=== PATIENT | female | born 1970 | race African-American/Black ===

== ENCOUNTER 2017-04-06 10:25 | Observation (INO) | payer OTHER ==
[2017-04-06 10:30] VITALS: BMI 28.8
[2017-04-06] MEDS ORDERED: SODIUM CHLORIDE 1,000 ML IV STA (10:58)
[2017-04-06 11:09] LABS: BASOPHIL 0.5 % (0-2.0); EOSINOPHIL 0.8 % (0-4.5); MCHC 27.1 g/dl (32.0-36.0); MEAN PLT VOLUME 8.3 fl (7.5-11.1); NEUTROPHILS 85.2 % (42.8-82.8); PLATELET COUNT 463 K/MM3 (134-434); RDW 19.8 % (11.6-15.6); WHITE BLOOD COUNT 11.6 K/mm3 (4.0-10.0)
[2017-04-06 11:14] LABS: MCH 15.1 pg (25.7-33.7)
[2017-04-06 11:20] LABS: URINE APPEARANCE SLCLOUDY; URINE BILIRUBIN NEGATIVE (NEGATIVE); URINE BLOOD NEGATIVE (NEGATIVE); URINE COLOR YELLOW; URINE GLUCOSE (UA) NEGATIVE (NEGATIVE); URINE KETONE NEGATIVE (NEGATIVE); URINE NITRITE NEGATIVE (NEGATIVE); URINE PROTEIN NEGATIVE (NEGATIVE); URINE UROBILINOGEN NEGATIVE mg/dL (0.2-1.0)
[2017-04-06 11:33] LABS: ALBUMIN 3.7 g/dl (3.4-5.0); ANION GAP 9 (8-16); BILIRUBIN,TOTAL 0.2 mg/dL (0.2-1.0); CO2 23 mmol/L (21-32); GLUCOSE,RANDOM 94 mg/dL (74-106); SGOT/AST 15 U/L (15-37); SGPT/ALT 16 U/L (12-78); TOT PROT 7.9 g/dl (6.4-8.2)
[2017-04-06 11:36] LABS: ALK PHOS 62 U/L (45-117); CPK 87 IU/L (26-192); TROPONIN I < 0.02 ng/ml (0.00-0.05)
[2017-04-06 11:46] LABS: ANISOCYTOSIS 2+; HYPOCHROMIA 4+; MACROCYTOSIS 1+; MICROCYTOSIS 2+; POLYCHROMASIA 1+; TARGET CELLS 1+
--- NOTE | 2017-04-06 11:47 | PDOC ---
History of Present Illness - General Chief Complaint: Syncope/Near Syncope Stated Complaint: LIGHTHEADED, SYNCOPE Time Seen by Provider: 04/06/17 10:46 History Source: Patient Exam Limitations: No Limitations - History of Present Illness Initial Comments: 04/06/17 11:23 46-year-old female with no past medical history presents to the medicine status post syncopal episode. Patient states the past few months has been having intermittent bouts of dizziness along with mild shortness of breath and palpitations worsened with movement or position changes. Patient denies headache , visual changes, fever, neck pain, difficulty swallowing, thyroid disorders, pulmonary disorders, abdominal pain change in weight, change in diet, lower extremity edema, or cold intolerance. Patient states has not seen his PCP in approximately [address] Stanford but has been followed by her LEARNING TECHNOLOGIST with routine mammo/Paps. 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 Patient denies drug or alcohol use. Patient denies change in weight. Presenting Symptoms: Dizziness, Short of Breath, Syncope Timing/Duration: reports: resolved prior to arrival Severity/Quality: reports: mild, moderate Prior Chest Pain/Cardiac Workup: reports: No prior chest pain Aspirin Received prior to arrival (Core Measure): Yes: no aspirin today Associated Symptoms: Yes: Dizziness, Shortness of Breath, Syncope Past History - Travel Traveled outside of the country in the last 30 days: No Close contact w/someone who was outside of country & ill: No - Past Medical History Allergies/Adverse Reactions: Allergies Allergy/AdvReac Type Severity Reaction Status Date / Time No Known Allergies Allergy Verified 04/06/17 10:30 Home Medications: Ambulatory Orders NK [No Known Home Medication] 04/06/17 Other medical history: PATIENT DENIES MEDICAL HX - Reproductive History LMP Normal: Yes Is Patient Now?: No - Suicide/Smoking/Psychosocial Hx Smoking History: Never smoked Hx Alcohol Use: Yes (OCCASIONALLY) Drug/Substance Use Hx: No Patient Lives Alone: No Lives with/in: spouse/SO Review of Systems - Review of Systems Able to Perform ROS?: Yes Constitutional: Yes: Weakness HEENTM: No: Symptoms Reported Respiratory: Yes: SOB with Exertion Cardiac (ROS): Yes: Lightheadedness, Palpitations, Syncope. No: Chest Tightness ABD/GI: No: Symptoms Reported : No: Symptoms Reported Musculoskeletal: No: Symptoms Reported Integumentary: No: Symptoms Reported Neurological: Yes: Weakness, Dizziness Hematologic/Lymphatic: No: Symptoms Reported, Anemia, Blood Clots, Easy Bruising *Physical Exam - Vital Signs Last Vital Signs Temp Pulse Resp BP Pulse Ox 98.2 F 96 H 16 111/72 100 04/06/17 10:27 04/06/17 10:59 04/06/17 10:27 04/06/17 10:59 04/06/17 10:49 - Physical Exam General Appearance: Yes: Nourished, Appropriately Dressed. No: Apparent Distress HEENT: positive: EOMI, SEAN, TMs Normal, Pharynx Normal, Pale Conjunctivae Neck: positive: Normal Thyroid, Supple Respiratory/Chest: positive: Lungs Clear, Normal Breath Sounds. negative: Respiratory Distress, Accessory Muscle Use Cardiovascular: positive: Regular Rhythm, Regular Rate. negative: Murmur Gastrointestinal/Abdominal: positive: Soft. negative: Tenderness Integumentary: positive: Warm, Moist Neurologic: positive: Normal Mood/Affect, Motor Strength 5/5 (ambulatory) Heart Score/ECG Review - ECG Intrepretation Rhythm: Regular Rhythm (76 normal sinus rhythm) ED Treatment Course - LABORATORY CBC & Chemistry Diagram: 04/06/17 11:00 04/06/17 11:00 - ADDITIONAL ORDERS Additional order review: Laboratory Results 04/06/17 04/06/17 04/06/17 11:26 11:00 11:00 D-Dimer Sodium 136 Potassium 4.0 Chloride 104 Carbon Dioxide 23 Anion Gap 9 BUN 14 Creatinine 1.0 Creat Clearance w eGFR 59.96 Random Glucose 94 Calcium 9.0 Total Bilirubin 0.2 AST 15 ALT 16 Alkaline Phosphatase 62 Creatine Kinase 87 Troponin I < 0.02 Total Protein 7.9 Albumin 3.7 Urine Color Yellow Urine Appearance Slcloudy Urine pH 5.0 Urine Protein Negative Urine Glucose (UA) Negative Urine Ketones Negative Urine Blood Negative Urine Nitrite Negative Urine Bilirubin Negative Urine Urobilinogen Negative Urine HCG, Qual Negative Crossmatch See Detail 04/06/17 11:00 D-Dimer < 200 Sodium Potassium Chloride Carbon Dioxide Anion Gap BUN Creatinine Creat Clearance w eGFR Random Glucose Calcium Total Bilirubin AST ALT Alkaline Phosphatase Creatine Kinase Troponin I Total Protein Albumin Urine Color Urine Appearance Urine pH Urine Protein Urine Glucose (UA) Urine Ketones Urine Blood Urine Nitrite Urine Bilirubin Urine Urobilinogen Urine HCG, Qual Crossmatch 04/06/17 11:00 RBC 3.93 MCV 56.0 L MCHC 27.1 L RDW 19.8 H MPV 8.3 Neutrophils % 85.2 H Lymphocytes % 8.8 Monocytes % 4.7 Eosinophils % 0.8 Basophils % 0.5 - RADIOLOGY Radiology Studies Ordered: Category Date Time Status CHEST X-RAY PORTABLE* [RAD] Stat Radiology 04/06/17 10:58 Ordered - Medications Given in the ED: ED Medications Discontinued Medications Generic Name Dose Route Start Last Admin Trade Name Freq PRN Reason Stop Dose Admin Sodium Chloride 1,000 mls @ 1,000 mls/hr 04/06/17 10:58 04/06/17 11:10 Normal Saline - IV 04/06/17 11:57 1,000 mls/hr ASDIR STA Administration Medical Decision Making - Medical Decision Making 04/06/17 11:21 Patient with intermittent dizziness, shortness of breath and weakness over the past 2 months now associated with a syncopal episode. Patient states started to feel dizzy and weak while shopping and while bending over symptoms increased and then awoke up on the floor with bystanders surrounding her. Patient ordered for cardiac workup, head CT labs, IV fluids and orthostatic vitals. Patient was found to be mildly orthostatic. Urinalysis urine ordered. 04/06/17 11:53 Laboratory Tests 04/06/17 11:00 WBC 11.6 H Hgb 5.9 L* Hct 22.0 L MCV 56.0 L MCH 15.1 L MCHC 27.1 L Plt Count 463 H Neutrophils % 85.2 H In questioning the patient patient states has had more shortness of breath with minimal exertion heavy but regular menses along with frequent ice chewing. Patient states has not seen her primary care doctor in approximately 3-4 years. Patient states sees her LEARNING TECHNOLOGIST regularly and denies any abnormal findings on ultrasound or mammogram. Patient ordered for 2 units of blood and will be admitted to the hospitalist . head CT was canceled *DC/Admit/Observation/Transfer Diagnosis at time of Disposition: Secondary anemia Syncope Qualifiers: Syncope type: unspecified Qualified Code(s): R55 - Syncope and collapse; R55 - Syncope and collapse - Discharge Dispostion Admit: Yes
--- NOTE | 2017-04-06 13:25 | HP ---
Admitting History and Physical - Admission Chief Complaint: pre syncope History of Present Illness: HPI: This is a 46 year old female with no significant past medical history who presented to the ED after having a syncopal episode. The patient reports her heart starting racing and then she passed out, she had not eaten breakfast yet. She does not think she hit her head but she fell forward on her knees and face, she has lower lip swelling. She states that this happens to her 2-3 times a week but never this bad. Usually when she moves very quickly or changes position she will feel her heart race and become lightheaded and need to sit down until it passes. She has never been seen for this. She does endorse just finishing her period and has heavy mensies. She denies the dizziness, visual changes, head ache, chest pain, shortness of breath, history of seizures, changes to her diet, bladder or bowel habits, weight loss. History Source: Patient Limitations to Obtaining History: No Limitations - Past Medical History ...: No - Smoking History Smoking history: Never smoked - Alcohol/Substance Use Hx Alcohol Use: Yes (OCCASIONALLY) - Social History Usual Living Arrangement: Yes: With Spouse ADL: Independent History of Recent Travel: No Home Medications - Allergies Allergies/Adverse Reactions: Allergies Allergy/AdvReac Type Severity Reaction Status Date / Time No Known Allergies Allergy Verified 04/06/17 10:30 - Home Medications Home Medications: Ambulatory Orders Acetaminophen [Tylenol .Regular Strength -] 650 mg PO Q4H PRN #0 tablet Docusate Sodium [Colace -] 100 mg PO DAILY #30 capsule 04/07/17 Ferrous Sulfate 325 mg PO DAILY #30 tablet 04/07/17 Review of Systems - Review of Systems Constitutional: reports: No Symptoms Eyes: reports: No Symptoms HENT: reports: No Symptoms Neck: reports: No Symptoms Cardiovascular: reports: Palpitations Respiratory: reports: No Symptoms Gastrointestinal: reports: No Symptoms Genitourinary: reports: No Symptoms Integumentary: reports: No Symptoms Neurological: reports: Syncope Endocrine: reports: No Symptoms Hematology/Lymphatic: reports: No Symptoms Psychiatric: reports: No Symptoms Physical Examination Vital Signs: Vital Signs Temperature 98.2 F 04/06/17 10:27 Pulse Rate 96 H 04/06/17 10:59 Respiratory Rate 16 04/06/17 10:27 Blood Pressure 111/72 04/06/17 10:59 O2 Sat by Pulse Oximetry (%) 100 04/06/17 10:49 Constitutional: Yes: No Distress Eyes: Yes: Conjunctiva Clear HENT: Yes: Other (Lower lip swelling) Neck: Yes: Supple Cardiovascular: Yes: Regular Rate and Rhythm, S1, S2 Respiratory: Yes: Regular, CTA Bilaterally Gastrointestinal: Yes: Normal Bowel Sounds, Soft Musculoskeletal: Yes: WNL Extremities: Yes: WNL Edema: No Integumentary: Yes: WNL Neurological: Yes: Alert, Oriented, Cran Nerves II-XII Intact Labs: CBC, BMP 04/06/17 11:00 04/06/17 11:00 Imaging - Results Chest X-ray: Report Reviewed, Image Reviewed Problem List - Problems (1) Symptomatic anemia Code(s): D64.9 - ANEMIA, UNSPECIFIED (2) Syncope Code(s): R55 - SYNCOPE AND COLLAPSE Qualifiers: Syncope type: unspecified Qualified Code(s): R55 - Syncope and collapse ; R55 - Syncope and collapse Assessment/Plan Assessment: 46 year old female admitted with syncope and anemia Plan: 1. Syncope - Likely due to anemia, however has 2-3 episodes a week - Check orthostatics - Carotid doppler - Echo - Neuro consulted 2. Acute blood loss anemia - Possible d/t menorrhagia - Check iron studies - Transfuse 2 units PRBC 3. Leukocytosis - Elevated neutrophils - Unclear, no infectious signs or symptoms - Will monitor 4. Thrombocytosis - ? reactive - Will trend Visit type - Emergency Visit Emergency Visit: Yes ED Registration Date: 04/06/17 Care time: The patient presented to the Emergency Department on the above date and was hospitalized for further evaluation of their emergent condition. - New Patient This patient is new to me today: Yes Date on this admission: 04/08/17 - Critical Care Critical Care patient: No
[2017-04-06 15:08] LABS: URINE LEUK ESTERASE Negative (NEGATIVE)
--- NOTE | 2017-04-06 15:15 | EKG ---
Test Reason : Blood Pressure : / mmHG Vent. Rate : 076 BPM Atrial Rate : 076 BPM P-R Int : 150 ms QRS Dur : 092 ms QT Int : 380 ms P-R-T Axes : 049 021 049 degrees QTc Int : 427 ms NORMAL SINUS RHYTHM NORMAL ECG WHEN COMPARED WITH ECG OF 01-JUL-2009 16:49, NO SIGNIFICANT CHANGE WAS FOUND CLINICAL CORRELATION IS RECOMMENDED Confirmed by MELISSA MALDONADO MD ([id number]) on 04/06/2017 3:15:37 PM Referred By: Confirmed By:MELISSA MALDONADO MD
[2017-04-06] MEDS ORDERED: ACETAMINOPHEN 325 MG TABLET (FP) PO PRN (17:54)
[2017-04-07 06:49] LABS: BASOPHIL 0.9 % (0-2.0); EOSINOPHIL 2.6 % (0-4.5); MCHC 30.4 g/dl (32.0-36.0); MEAN PLT VOLUME 8.7 fl (7.5-11.1); NEUTROPHILS 63.2 % (42.8-82.8); PLATELET COUNT 406 K/MM3 (134-434); RDW 27.2 % (11.6-15.6); WHITE BLOOD COUNT 10.4 K/mm3 (4.0-10.0)
[2017-04-07 07:25] LABS: MCH 18.8 pg (25.7-33.7)
[2017-04-07 07:37] LABS: ALBUMIN 3.3 g/dl (3.4-5.0); ALK PHOS 57 U/L (45-117); ANION GAP 10 (8-16); BILIRUBIN,TOTAL 0.9 mg/dL (0.2-1.0); CALCIUM 8.6 mg/dL (8.5-10.1); CO2 20 mmol/L (21-32); CREATININE 0.9 mg/dL (0.55-1.02); GLUCOSE,RANDOM 89 mg/dL (74-106); SGOT/AST 11 U/L (15-37); SGPT/ALT 15 U/L (12-78)
--- NOTE | 2017-04-07 13:32 | PN ---
Progress Note (short form) - Note Progress Note: Subjective: The patient was seen and examined at the bedside, she has no complaints at this time. Current Medications Generic Name Dose Route Start Last Admin Trade Name Temo PRN Reason Stop Dose Admin Acetaminophen 650 mg 04/06/17 17:54 Tylenol - PO Q4H PRN FEVER OR PAIN Objective: Vital Signs Period Temp Pulse Resp BP Sys/Cowart Pulse Ox Last 24 Hr 97.6 F-98.8 F 64-83 18-20 109-130/63-81 97-100 Physical Exam: General: NAD, A&Ox3 Lungs: CTA bilaterally Heart: RRR, S1S2 Abd: Soft, non-tender, non-distended. Normoactive bowel sounds Ext: Warm, well-perfused. 2+ DP/PT bilaterally Neuro: CN 2-12 intact CBCD WBC 10.4 K/mm3 (4.0-10.0) H 04/07/17 06:20 RBC 4.58 M/mm3 (3.60-5.2) 04/07/17 06:20 Hgb 8.6 GM/dL (10.7-15.3) L D 04/07/17 06:20 Hct 28.4 % (32.4-45.2) L D 04/07/17 06:20 MCV 62.0 fl (80-96) L 04/07/17 06:20 MCHC 30.4 g/dl (32.0-36.0) L 04/07/17 06:20 RDW 27.2 % (11.6-15.6) H 04/07/17 06:20 Plt Count 406 K/MM3 (134-434) 04/07/17 06:20 MPV 8.7 fl (7.5-11.1) 04/07/17 06:20 CMP Sodium 138 mmol/L (136-145) 04/07/17 06:20 Potassium 4.3 mmol/L (3.5-5.1) 04/07/17 06:20 Chloride 108 mmol/L (98-107) H 04/07/17 06:20 Carbon Dioxide 20 mmol/L (21-32) L 04/07/17 06:20 Anion Gap 10 (8-16) 04/07/17 06:20 BUN 14 mg/dL (7-18) 04/07/17 06:20 Creatinine 0.9 mg/dL (0.55-1.02) 04/07/17 06:20 Creat Clearance w eGFR > 60 (>60) 04/07/17 06:20 Random Glucose 89 mg/dL (74-106) 04/07/17 06:20 Calcium 8.6 mg/dL (8.5-10.1) 04/07/17 06:20 Total Bilirubin 0.9 mg/dL (0.2-1.0) D 04/07/17 06:20 AST 11 U/L (15-37) L D 04/07/17 06:20 ALT 15 U/L (12-78) 04/07/17 06:20 Alkaline Phosphatase 57 U/L (45-117) 04/07/17 06:20 Total Protein 7.0 g/dl (6.4-8.2) 04/07/17 06:20 Albumin 3.3 g/dl (3.4-5.0) L 04/07/17 06:20 CARDIAC ENZYMES Creatine Kinase 87 IU/L (26-192) 04/06/17 11:00 Troponin I < 0.02 ng/ml (0.00-0.05) 04/06/17 11:00 Assessment: This is a 46 year old female with no significant PMHx who presented to the ED with syncopal episode. 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 - New Patient This patient is new to me today: Yes Date on this admission: 04/07/17 - Critical Care Critical Care patient: No
--- NOTE | 2017-04-07 15:05 | CON.NEURO ---
Consult Consult Specialty:: Neurology Referred by:: Cuco Reason for Consultation:: recurrent syncope/near syncope - History of Present Illness Chief Complaint: syncope History of Present Illness: 46 year old woman who passed out after standing up. She says that she frequently, over the last 6 months or so, has episodes about 2-3 times per week where if she stands up quickly or is stressed, she'll feel her heart rate go up and feel light headed. She doesn't pass out and will sit down for a minute or two until the feeling passes. Its never been worked up. When she was in her 20 's she was shopping in a mall with her mother and was wearing an overcoat, was too hot, and felt the same feeling, briefly passed out and was given some juice and went about her business without seeking attention. She had a couple of episodes of tachycardia/lightheadedness without syncope during her pregnancies, but none in years until about 6 months ago. She has no family history of syncope and denies any viral syndromes prior to the first episode. - History Source History Provided By: Patient, Medical Record Limitations to Obtaining History: No Limitations - Past Medical History ...: No - Alcohol/Substance Use Hx Alcohol Use: Yes (OCCASIONALLY) - Smoking History Smoking history: Never smoked - Social History ADL: Independent History of Recent Travel: No Home Medications - Allergies Allergies/Adverse Reactions: Allergies Allergy/AdvReac Type Severity Reaction Status Date / Time No Known Allergies Allergy Verified 04/06/17 10:30 - Home Medications Home Medications: Ambulatory Orders NK [No Known Home Medication] 04/06/17 Physical Exam-Neuro Vital Signs: Vital Signs Temperature 98.4 F 04/07/17 13:56 Pulse Rate 71 04/07/17 13:56 Respiratory Rate 18 04/07/17 13:56 Blood Pressure 128/61 04/07/17 13:56 O2 Sat by Pulse Oximetry (%) 98 04/07/17 10:00 Constitutional: Yes: Well Nourished, No Distress, Calm Musculoskeletal: Yes: WNL Psychiatric: Yes: WNL, Oriented Labs: CBC, BMP 04/07/17 06:20 04/07/17 06:20 - Neuro Exam Level Of Consciousness: Yes: Alert, Oriented to Place, Oriented to Time Eyes: Yes: SEAN Speech: WNL Cranial Nerves II-XII Intact: Yes DTR's: 2+ Left Bicep, 2+ Right Bicep, 2+ Left Tricep, 2+ Right Tricep, 2+ Left Brachioradialis, 2+ Right Brachioradialis, 2+ Left Achilles, 2+ Right Achilles Babinski: Absent Response to light touch: Normal Response to pain prick: Normal Motor Strength: 5/5: Left Arm, Right Arm, Left Leg, Right Leg Imaging - Results Ultrasound: Report Reviewed (carotid dopplers suggest elevated velocities bilaterally without evidence of stenosis) Problem List - Problems (1) Syncope Assessment/Plan: Agree most likely due to anemia. If symptoms persist when anemia is corrected, could evaluate for postural orthostatic tachycardia syndrome (POTS) with tilt table, but given that she had large asymptomatic period between her twenties and recent 6 months of symptoms, that seems way less likely. Thanks. I'll sign off but please call if further questions arise. Code(s): R55 - SYNCOPE AND COLLAPSE Qualifiers: Syncope type: unspecified Qualified Code(s): R55 - Syncope and collapse ; R55 - Syncope and collapse
--- NOTE | 2017-04-07 17:03 | DS ---
Physical Exam: SUBJECTIVE: Patient seen and examined OBJECTIVE: Vital Signs Period Temp Pulse Resp BP Sys/Cowart Pulse Ox Last 24 Hr 97.6 F-98.8 F 64-75 18-18 109-130/61-75 97-98 PHYSICAL EXAM GENERAL: The patient is awake, alert, and fully oriented, in no acute distress. HEAD: Normal with no signs of trauma. EYES: PERRL, extraocular movements intact, sclera anicteric, conjunctiva clear. ENT: Ears normal, nares patent, oropharynx clear without exudates, moist mucous membranes. NECK: Trachea midline, full range of motion, supple. LUNGS: Breath sounds equal, clear to auscultation bilaterally, no wheezes, no crackles, no accessory muscle use. HEART: Regular rate and rhythm, S1, S2 without murmur, rub or gallop. ABDOMEN: Soft, nontender, nondistended, normoactive bowel sounds, no guarding, no rebound, no hepatosplenomegaly, no masses. EXTREMITIES: 2+ pulses, warm, well-perfused, no edema. NEUROLOGICAL: Cranial nerves II through XII grossly intact. Normal speech, gait not observed. PSYCH: Normal mood, normal affect. SKIN: Warm, dry, normal turgor, no rashes or lesions noted. LABS Laboratory Results - last 24 hr 04/07/17 04/07/17 06:20 06:20 WBC 10.4 H RBC 4.58 Hgb 8.6 L D Hct 28.4 L D MCV 62.0 L MCH 18.8 L MCHC 30.4 L RDW 27.2 H Plt Count 406 MPV 8.7 Neutrophils % 63.2 D Lymphocytes % 22.3 D Monocytes % 11.0 H D Eosinophils % 2.6 D Basophils % 0.9 Sodium 138 Potassium 4.3 Chloride 108 H Carbon Dioxide 20 L Anion Gap 10 BUN 14 Creatinine 0.9 Creat Clearance w eGFR > 60 Random Glucose 89 Calcium 8.6 Total Bilirubin 0.9 D AST 11 L D ALT 15 Alkaline Phosphatase 57 Total Protein 7.0 Albumin 3.3 L Vitamin B12 Cancelled HOSPITAL COURSE: Date of Admission:04/06/17 Date of Discharge: 04/07/17 Discharge Summary Reason For Visit: SYMTOMATIC ANEMIA,SYNCOPE Current Active Problems Symptomatic anemia (Acute) Syncope (Acute) Condition: Improved - Instructions Diet, Activity, Other Instructions: Please return to the ED with new, persistent, or worsening symptoms. Please follow-up with providers as indicated. Please follow-up with your pcp within 2-3 days for the results of your iron studies. Referrals: Minh Angela MD [Staff Physician] - (Please follow-up with neurology within 2-3 days as an outpatient) Filippo Stanford MD [Staff Physician] - (Please follow-up with your primary care provider for further management of your anemia) Esther Santiago MD [Staff Physician] - (Please follow-up with program director/morning show host within 2- 3 days for further evaluation of your menses) Disposition: HOME - Home Medications Comprehensive Discharge Medication List: Ambulatory Orders Acetaminophen [Tylenol .Regular Strength -] 650 mg PO Q4H PRN #0 tablet Docusate Sodium [Colace -] 100 mg PO DAILY #30 capsule 04/07/17 Ferrous Sulfate 325 mg PO DAILY #30 tablet 04/07/17
[2017-04-07 17:23] VITALS: BP 117/75; PULSE 69; TEMP 98.3
[2017-04-08 06:11] LABS: SERUM IRON 11 ug/dL (27-159); TOTAL IRON BINDING CAPACITY 445 ug/dL (250-450); UIBC 434 ug/dL (131-425)
[2017-04-08 08:12] LABS: TRANSFERRIN 372 mg/dL (200-370)
== END 2017-04-07 18:40 | disposition home or self-care (01) ==
LOC: JER 10:25 → JERBED 12:20 → J4W 16:12
PROVIDERS: ADMIT Internal Medicine; ATTEND Registered Nurse
PROC: 30233N1 Transfusion of Nonautologous Red Blood Cells into Peripheral Vein, Percutaneous Approach (ICD-10-PCS; principal; 2017-04-06)
PROC: 3E0337Z Introduction of Electrolytic and Water Balance Substance into Peripheral Vein, Percutaneous Approach (ICD-10-PCS; 2017-04-06)
DX: D50.0 Iron deficiency anemia secondary to blood loss (chronic) (principal); D72.829 Elevated white blood cell count, unspecified; R55 Syncope and collapse
CPT/HCPCS: 36415; 36430; 71010-TC; 80053; 81003; 83540; 83550; 84466; 84484; 84703; 85025; 85379; 86850; 86900; 86901; 86922; 93005; 93010; 93306-TC; 93880-TC; 99285-25; G0378; P9038; P9058

== ENCOUNTER 2017-08-06 07:39 | Inpatient (IN) | payer OTHER ==
[2017-08-04 19:19] VITALS: BMI 28.2
[2017-08-06] MEDS ORDERED: MIDAZOLAM HCL 2 MG/2 ML SINGLE DOSE VIAL ONE ×2 (07:59)
[2017-08-06] MEDS ORDERED: ROPIVACAINE HCL 0.5% 30ML VIAL ONE (08:00)
[2017-08-06] MEDS ORDERED: CEFAZOLIN 2 GM in DEXTROSE 5%-WATER - 50 ML IVPB ONE (08:09)
[2017-08-06] MEDS ORDERED: ONDANSETRON 4 MG/2 ML VIAL IVPUSH PRN ×2 (08:23→10:54)
[2017-08-06] MEDS ORDERED: DEXAMETHASONE SOD PHOSPHATE 4 MG/1 ML VIAL IVPUSH PRN (08:23)
[2017-08-06] MEDS ORDERED: PROMETHAZINE HCL 25 MG/1 ML VIAL IVPB PRN (08:23)
[2017-08-06] MEDS ORDERED: ceFAZolin SODIUM 1 GM VIAL ONE (08:29)
[2017-08-06] MEDS ORDERED: HYDROmorphone *PCA* 10MG/50ML DISP.SYRIN PCA SCH (08:30)
[2017-08-06] MEDS ORDERED: LACTATED RINGERS SOLUTION 1,000 ML IV SCH (08:30)
[2017-08-06] MEDS ORDERED: CEFAZOLIN 2 GM/D5W 2 GM/50 ML ML IVPB ONE (08:37)
[2017-08-06] MEDS ORDERED: ROCURONIUM BROMIDE 50 MG/5 ML VIAL ONE (08:39)
[2017-08-06] MEDS ORDERED: PROPOFOL 20 ML ONE ×3 (08:39)
--- NOTE | 2017-08-06 09:14 | HP ---
Past Medical History - Primary Care Physician PCP:: Ty Bolanos - Admission Chief Complaint: pelvic pain, menometrorrhagia, fibroid uterus History of Present Illness: 46 yo with prolonged history of heavy menses and pelvic pain and fibroid uterus admitted for supracervical abdominal hysterectomy .bilateral salpingectomy, rba to procedure has discussed with patient History Source: Patient Limitations to Obtaining History: No Limitations - Past Medical History ...: 2 ...Para: 2 - Past Surgical History Past Surgical History: Yes: Hx Myomectomy: No Hx Transabdominal Cerclage: No - Smoking History Smoking history: Never smoked - Alcohol/Substance Use Hx Alcohol Use: Yes (OCCASIONALLY) - Social History ADL: Independent History of Recent Travel: No Home Medications - Allergies Allergies/Adverse Reactions: Allergies Allergy/AdvReac Type Severity Reaction Status Date / Time No Known Allergies Allergy Verified 08/04/17 19:12 - Home Medications Home Medications: Ambulatory Orders Ferrous Sulfate 325 mg PO DAILY #30 tablet 04/07/17 Multivitamin [One Daily] 1 each PO DAILY 08/04/17 Review of Systems - Review of Systems Constitutional: reports: No Symptoms Eyes: reports: No Symptoms HENT: reports: No Symptoms Neck: reports: No Symptoms Respiratory: reports: No Symptoms Gastrointestinal: reports: No Symptoms Genitourinary: reports: Frequency, Vaginal Bleeding Breasts: reports: No Symptoms Reported Musculoskeletal: reports: No Symptoms Integumentary: reports: No Symptoms Neurological: reports: No Symptoms Endocrine: reports: No Symptoms Hematology/Lymphatic: reports: No Symptoms Psychiatric: reports: No Symptoms 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 Signs: Vital Signs Temperature 98.2 F 08/06/17 08:27 Pulse Rate 63 08/06/17 08:27 Respiratory Rate 18 08/06/17 08:27 Blood Pressure 113/74 08/06/17 08:27 O2 Sat by Pulse Oximetry (%) 97 08/06/17 08:33 Constitutional: Yes: Well Nourished, No Distress, Calm Eyes: Yes: WNL, Conjunctiva Clear, EOM Intact HENT: Yes: WNL, Atraumatic, Normocephalic Neck: Yes: WNL, Supple, Trachea Midline Cardiovascular: Yes: WNL, Regular Rate and Rhythm Respiratory: Yes: WNL, Regular, CTA Bilaterally Gastrointestinal: Yes: WNL ...Rectal Exam: Yes: WNL Renal/: Yes: WNL External Genitalia: Yes: Normal Vaginal Exam: Yes: Normal Cervix: Yes: Normal Uterus: Yes: Enlarged, Lumpy, Mass, Tender Adnexa: Not Palpable: Left, Right Breast(s): Yes: WNL Musculoskeletal: Yes: WNL Extremities: Yes: WNL Edema: No Integumentary: Yes: WNL Neurological: Yes: WNL, Alert, Oriented ...Motor Strength: WNL Psychiatric: Yes: WNL, Alert, Oriented Problem List - Problem (1) Pelvic pain Code(s): R10.2 - PELVIC AND PERINEAL PAIN (2) Menometrorrhagia Code(s): N92.1 - EXCESSIVE AND FREQUENT MENSTRUATION WITH IRREGULAR CYCLE (3) Fibroids, intramural Code(s): D25.1 - INTRAMURAL LEIOMYOMA OF UTERUS (4) Anemia Code(s): D64.9 - ANEMIA, UNSPECIFIED Qualifiers: Anemia type: iron deficiency Assessment/Plan supracervical abdominal hysterectomy, bilateral salpingectomy , possible oophorectomy
[2017-08-06] MEDS ORDERED: LIDOCAINE HCL/PF 2% SDV 5ML VIAL ONE (09:18)
[2017-08-06] MEDS ORDERED: ceFAZolin SODIUM 1 GM VIAL IVPB ONE (09:26)
[2017-08-06] MEDS ORDERED: fentaNYL CITRATE 250 MCG/5 ML VIAL ONE (09:36)
[2017-08-06] MEDS ORDERED: DESFLURANE GAS 240 ML BOTTLE IH ONE (10:07)
[2017-08-06] MEDS ORDERED: GLYCOPYRROLATE 0.2 MG/1 ML VIAL ONE (10:13)
[2017-08-06] MEDS ORDERED: NEOSTIGMINE METHYLSULFATE 0.5 MG/ML - 10 ML MDV ONE (10:13)
[2017-08-06] MEDS ORDERED: KETOROLAC TROMETHAMINE 30 MG/1 ML VIAL ONE (10:44)
[2017-08-06] MEDS ORDERED: oxyCODONE HCL 5 MG TABLET PO PRN (10:54)
[2017-08-06] MEDS ORDERED: IBUPROFEN 800 MG/8 ML IJ IVPB PRN (10:54)
[2017-08-06] MEDS ORDERED: IBUPROFEN 600 MG TABLET (FP) PO PRN (10:54)
[2017-08-06] MEDS ORDERED: ELECTROLYTE-148 SOLN 1,000 ML IV SCH (11:00)
[2017-08-06] MEDS ORDERED: HYDROmorphone HCL CARPU-JECT 1 MG/1 ML DISP.SYRIN IVPUSH ONE (11:06)
[2017-08-06] MEDS ORDERED: HYDROmorphone *PCA* 6MG/30ML DISP.SYRIN PCA ONE (11:26)
[2017-08-06] MEDS ORDERED: HYDROmorphone *PCA* 6MG/30ML DISP.SYRIN PCA SCH (14:07)
--- NOTE | 2017-08-06 14:42 | OP ---
DATE OF OPERATION: 08/06/2017 PREOPERATIVE DIAGNOSIS: Menometrorrhagia, pelvic pain, and fibroid uterus. POSTOPERATIVE DIAGNOSIS: Menometrorrhagia, pelvic pain, and fibroid uterus. PROCEDURE: Supracervical abdominal hysterectomy and bilateral salpingectomy. SURGEON: Antelmo Bolanos MD FOOD PRODUCTS TESTER: Delano Scruggs MD ANESTHESIA: General. ANESTHESIOLOGIST: Yoseph Gautam MD ESTIMATED BLOOD LOSS: 100 mL. DESCRIPTION OF PROCEDURE: The patient was taken to the operating room, and under adequate general anesthesia, a Pfannenstiel abdominal skin incision was made over the previous incision. Abdominal wall was cut layer by layer, and the peritoneum was exposed and incised. Upon entering the abdominal cavity, abdomen was checked, bowels were packed away. There was a large uterine fibroid, and then, both ovaries appeared to be normal. Right ovary had a small corpus luteum cyst. Bladder was adherent to the cervical area. At this time, round ligament was identified bilaterally, clamped with a LigaSure bipolar cautery, cauterized and cut. The anterior leaf of broad ligament was opened, and the bladder adhesions were lysed with Metzenbaum scissors, and bladder was pushed down. Then, a hole was made into the broad ligament, and then, the ovarian ligament was grasped with the bipolar LigaSure cautery, cauterized, and cut, and severed from the uterus. Then, the tubes were cut along the mesosalpinx with the LigaSure bipolar cautery. Then, bladder was further pushed down. Uterine arteries were identified bilaterally, clamped with a Sid clamp, cut, and the clamp replaced with 0 Vicryl suture bilaterally. At this time, paracervical area was clamped with Sid clamp, cut, and the clamp was replaced with 0 Vicryl suture bilaterally. Then, uterus was cut above the cervix. Then, the cervix was sutured with continuous suture of the 0 Vicryl. Pelvic cavity was several times irrigated. There was slight bleeding at the edge of the right ovary, which was clamped and sutured with interrupted suture of 3-0 Vicryl. Hemostasis was established. No other active bleeding was seen. All the lab pad, sponge, and instrument counts were correct. Peritoneum was closed with 0 continuous suture. Muscles were brought together with interrupted suture of 0 Vicryl. Fascia was closed with 0 Vicryl continuous sutures, subcutaneous fat with interrupted suture of 0 Biosyn, and the skin was closed with 4-0 Biosyn subcuticular suture. Patient tolerated the procedure well, left the OR in good condition. ANTELMO BOLANOS M.D. [id number]
[2017-08-06] MEDS: CEFAZOLIN 1 GM PUSH 1 GM/10 ML DISP.SYRIN IVPUSH SCH (17:26)
[2017-08-06] MEDS ORDERED: PCA PUMP KEY 1 EACH EACH ONE (19:54)
[2017-08-07] MEDS: CEFAZOLIN 1 GM PUSH 1 GM/10 ML DISP.SYRIN IVPUSH SCH (02:27)
[2017-08-07] MEDS ORDERED: BISACODYL 10 MG SUPP.RECT RC PRN (08:13)
[2017-08-07 08:18] LABS: HEMATOCRIT 32.8 % (32.4-45.2); HEMOGLOBIN 10.5 GM/dL (10.7-15.3); MCH 28.7 pg (25.7-33.7); MEAN CELL VOLUME 89.7 fl (80-96); MEAN PLT VOLUME 9.2 fl (7.5-11.1); PLATELET COUNT 263 K/MM3 (134-434); RBC 3.66 M/mm3 (3.60-5.2); RDW 13.3 % (11.6-15.6); WHITE BLOOD COUNT 12.3 K/mm3 (4.0-10.0)
[2017-08-07] MEDS: ENOXAPARIN NA (PORCINE) 40 MG/0.4 ML DISP.SYRIN SQ SCH (10:11)
[2017-08-07] MEDS: SIMETHICONE 80 MG TAB.CHEW (FP) PO PRN ×2 (11:39→16:54)
[2017-08-07] MEDS: ACETAMINOPHEN 325 MG TABLET (FP) PO PRN (11:42)
--- NOTE | 2017-08-07 11:43 | PN ---
Progress Note (short form) - Note Progress Note: Anesthesiology Pain Service S: POD #1 s/p supracervical hysterectomy with bilateral salpingectomy under GA wit post-op OUTSIDE MACHINIST SUPERVISOR. O: Pt. is resting comfortably this AM in NAD. Pain is well controlled. OUTSIDE MACHINIST SUPERVISOR was just d/c'd this AM by primary team. No apparent anesthesia-related issues. VSS. A: 46 year-old otherwise healthy woman POD#1 with good post-operative recovery, good pain control on PO meds. P: Continue current management by primary team. Please re-consult Anesthesiology PRN. Thank you.
[2017-08-07] MEDS ORDERED: oxyCODONE HCL 5 MG TABLET PO PRN (14:38)
[2017-08-07] MEDS ORDERED: ONDANSETRON 4 MG/2 ML VIAL IVPUSH PRN (14:38)
[2017-08-07] MEDS ORDERED: IBUPROFEN 800 MG/8 ML IJ IVPB PRN (14:38)
[2017-08-07] MEDS ORDERED: ELECTROLYTE-148 SOLN 1,000 ML IV SCH (14:45)
[2017-08-07] MEDS: IBUPROFEN 600 MG TABLET (FP) PO PRN (16:55)
--- NOTE | 2017-08-07 19:22 | PN ---
Progress Note (short form) - Note Progress Note: pod 1doing well , ambulating, CBC, BMP 08/07/17 07:30 Last Vital Signs Temp Pulse Resp BP Pulse Ox 99.8 F H 80 20 135/76 98 08/07/17 17:16 08/07/17 17:16 08/07/17 17:16 08/07/17 17:16 08/07/17 09:00 abdomen soft, no distension, no cva incision dry, clean no vaginal bleeding no calf tenderness impression pod 1 afebrile, advised ambulate , advance diet pain management Problem List - Problems (1) Pelvic pain Code(s): R10.2 - PELVIC AND PERINEAL PAIN (2) Menometrorrhagia Code(s): N92.1 - EXCESSIVE AND FREQUENT MENSTRUATION WITH IRREGULAR CYCLE (3) Fibroids, intramural Code(s): D25.1 - INTRAMURAL LEIOMYOMA OF UTERUS (4) Anemia Code(s): D64.9 - ANEMIA, UNSPECIFIED Qualifiers: Anemia type: iron deficiency
[2017-08-08] MEDS: IBUPROFEN 600 MG TABLET (FP) PO PRN ×3 (01:25→12:17)
[2017-08-08] MEDS: SIMETHICONE 80 MG TAB.CHEW (FP) PO PRN ×3 (01:25→12:18)
[2017-08-08] MEDS ORDERED: PCA PUMP KEY 1 EACH EACH ONE (06:28)
[2017-08-08] MEDS: ACETAMINOPHEN 325 MG TABLET (FP) PO PRN ×2 (06:32→12:18)
--- NOTE | 2017-08-08 07:45 | DS ---
Physical Exam-C[employer] Vital Signs: Vital Signs Temperature 98.4 F 08/08/17 06:00 Pulse Rate 80 08/07/17 21:43 Respiratory Rate 20 08/07/17 21:43 Blood Pressure 125/64 08/07/17 21:43 O2 Sat by Pulse Oximetry (%) 98 08/07/17 09:00 Constitutional: Yes: Well Nourished, No Distress, Calm Eyes: Yes: WNL, Conjunctiva Clear, EOM Intact HENT: Yes: WNL, Atraumatic, Normocephalic Neck: Yes: WNL, Supple, Trachea Midline Cardiovascular: Yes: WNL, Regular Rate and Rhythm Respiratory: Yes: WNL, Regular, CTA Bilaterally Gastrointestinal: Yes: WNL ...Rectal Exam: Yes: WNL Renal/: Yes: WNL Breast(s): Yes: WNL Musculoskeletal: Yes: WNL Extremities: Yes: WNL Edema: No Integumentary: Yes: WNL Wound/Incision: Yes: Clean/Dry, Well Approximated, Sutures Intact Neurological: Yes: WNL, Alert, Oriented ...Motor Strength: WNL Psychiatric: Yes: WNL, Alert, Oriented Labs: CBC, BMP 08/07/17 07:30 Discharge Summary Reason For Visit: MENORRHAGIA/FIBROID UTERUS Current Active Problems Anemia (Acute) Fibroids, intramural (Acute) Menometrorrhagia (Acute) Pelvic pain (Acute) Procedures: Principal: supracervical abdominal hysterectomy, bilateral salpingectomy Condition: Good - Instructions Diet, Activity, Other Instructions: regular diet, follow up office 2 weeks, if fever ,pain, bleeding call Referrals: Ty Bolanos MD [Staff Physician] - Disposition: HOME - Home Medications Comprehensive Discharge Medication List: Ambulatory Orders Ferrous Sulfate 325 mg PO DAILY #30 tablet 04/07/17 Multivitamin [One Daily] 1 each PO DAILY 08/04/17 Ibuprofen [Motrin -] 600 mg PO QID #28 tablet 08/07/17
[2017-08-08 09:07] VITALS: BP 106/66; PULSE 72; TEMP 98.6
[2017-08-08] MEDS: ENOXAPARIN NA (PORCINE) 40 MG/0.4 ML DISP.SYRIN SQ SCH (09:44)
--- NOTE | 2017-08-08 13:54 | PATH ---
Surgical Pathology Report Patient Name: GAYLA HERRERA [facility]. Rec. #: [id number] /Age/Gender: 1970 (Age: 46) / F Account: [id number] Location: [facility] OBS/[employer] SECURITY Taken: 08/06/2017 Received: 08/06/2017 Reported: 08/08/2017 Physicians: Ty Bolanos M.D. Specimen(s) Received UTERUS, BILATERAL FALLOPIAN TUBES Clinical History Menorrhagia, fibroid uterus Final Diagnosis UTERUS AND BILATERAL FALLOPIAN TUBES, SUPRACERVICAL HYSTERECTOMY AND BILATERAL SALPINGECTOMY: UTERUS, 478 GRAMS, WITH LEIOMYOMATA AND ADENOMYOSIS. BENIGN BILATERAL FALLOPIAN TUBES WITH INTRATUBAL CONTROL DEVICES. Electronically Signed Jose Torres M.D. Gross Description Received in formalin labeled "uterus, bilateral fallopian tubes," is a 478 g supracervically amputated uterus with bilateral attached fallopian tubes. The specimen measures 11.5 cm from superior to inferior, 8.5 cm from anterior to posterior and 8 cm from left to right. The serosa is mendez-lindsey and smooth. The endometrial cavity measures 7.5 cm in length and 3 cm from cornu to cornu. The endometrium is mendez-red and lush, measuring up to 0.4 cm in thickness. The myometrium displays abundant intramural nodules, measuring up to 4 cm in greatest dimension. The cut surface of the nodules is mendez, firm to rubbery and displays whorled architecture. No areas of hemorrhage or necrosis are identified. The remaining myometrium is mendez-pink and averages 3.6 cm in thickness. The proximal ends of both fallopian tubes display a lindsey metallic, coiled contraceptive device. The left fimbriated fallopian tube measures 4.5 cm in length. The outer surface is lindsey purple and smooth. Sectioning reveals unremarkable lumen. The right fimbriated fallopian tube measures 6 cm in length. The outer surface is villatoro purple and smooth. Sectioning reveals an unremarkable lumen. Automobile Assembly Supervisor sections are submitted in 14 cassettes as follows: 1-cervical stump margin of resection; 8-3-kjtrehul endomyometrium; 5-3-kthtmkykb endomyometrium; 6-7- largest intramural nodule; 1-05-lvrsalhxxd intramural nodules; 11-left fallopian tube fimbria; 12-cross sections of the left fallopian tube; 13-right fallopian tube fimbria; 14-cross sections of right fallopian tube. 08/07/201708/07/2017
== END 2017-08-08 12:25 | disposition home or self-care (01) | DRG 519 ==
LOC: JSAMEDAYSX 07:39 → EDSTATUS 09:00 → J3W 13:49
PROVIDERS: ADMIT Obstetrics & Gynecology; ATTEND Obstetrics & Gynecology
PROC: 0UB70ZZ Excision of Bilateral Fallopian Tubes, Open Approach (ICD-10-PCS; 2017-08-06)
PROC: 0UT90ZL Resection of Uterus, Supracervical, Open Approach (ICD-10-PCS; principal; 2017-08-06 09:00)
DX: D25.1 Intramural leiomyoma of uterus (principal); D50.9 Iron deficiency anemia, unspecified
CPT/HCPCS: 36415; 84703; 85027; 88305-TC; 94010; 94760; J1170